=== PATIENT | female | born 1940 | race American Indian/Alaskan Native ===

== ENCOUNTER 2017-08-27 06:20 | Outpatient (RCR) | payer MEDICARE | END 2017-08-28 | disposition home or self-care (01) | LOC: PTY 06:20 | DX: R26.9 Unspecified abnormalities of gait and mobility (principal); Z91.81 History of falling | CPT/HCPCS: 97110; 97162; G8978; G8979 ==

== ENCOUNTER 2017-09-24 07:15 | Outpatient (RCR) | payer MEDICARE | END 2017-09-28 | disposition home or self-care (01) | LOC: PTY 07:15 | DX: R26.9 Unspecified abnormalities of gait and mobility (principal); Z91.81 History of falling ==

== ENCOUNTER 2017-10-01 07:50 | Outpatient (RCR) | payer MEDICARE | END 2017-10-28 | disposition home or self-care (01) | LOC: PTY 07:50 | DX: R26.89 Other abnormalities of gait and mobility (principal); Z91.81 History of falling ==